=== PATIENT | male | born 1990 | race Caucasian/White ===

== ENCOUNTER 2017-01-29 23:51 | Emergency (ER) | payer OTHER ==
[2017-01-30] MEDS ORDERED: KETOROLAC 60 MG/2 ML VIAL IM STA (00:40)
[2017-01-30] MEDS ORDERED: KETOROLAC 60 MG/2 ML VIAL ONE (00:42)
[2017-01-30] MEDS ORDERED: ONDANSETRON ODT 4 MG TABLET TL STA (00:45)
[2017-01-30] MEDS ORDERED: ONDANSETRON ODT 4 MG TABLET ONE (00:49)
== END 2017-01-30 01:12 | disposition home or self-care (01) ==
DX: B34.9 Viral infection, unspecified (principal)
CPT/HCPCS: 96372; 99283; Q0162